=== PATIENT | male | born 2000 | race Caucasian/White ===

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

== ENCOUNTER 2018-01-15 01:23 | Emergency (ER) | payer OTHER ==
[2018-01-15] MEDS: IBUPROFEN 600 MG TAB PO (02:36)
== END 2018-01-15 03:58 | disposition home or self-care (01) ==
LOC: FTE 01:23
DX: G56.03 Carpal tunnel syndrome, bilateral upper limbs (principal)
CPT/HCPCS: 29125; 99283-25